=== PATIENT | male | born 1995 | race Caucasian/White ===

== ENCOUNTER 2016-10-11 16:39 | Day surgery (SDC) | payer OTHER ==
[2016-10-11 18:08] LABS: BILIRUBIN,URINE NEGATIVE (NEGATIVE)
[2016-10-11 18:10] LABS: UA CHARGE (STRIP ONLY) YES; UR CULTURE IF IND NOT INDICATED
[2016-10-11 18:16] LABS: BASOPHILS # (AUTO) 0.1 10^3/uL (0.0-0.1); BASOPHILS % (AUTO) 0.4 %; EOSINOPHILS % (AUTO) 0.1 %; HCT - HEMATOCRIT 45.5 % (42.0-52.0); HGB - HEMOGLOBIN 15.3 g/dL (14.0-18.0); LYMPHOCYTES # (AUTO) 1.5 10^3/uL (1.5-3.5); LYMPHOCYTES % (AUTO) 6.9 %; MEAN CORPUSCULAR HGB CONC 33.7 g/dL (32.0-36.0); MEAN CORPUSCULAR VOLUME 86.1 fL (80.0-94.0); MEAN PLATELET VOLUME 6.4 fL (7.4-11.4); MONOCYTES # (AUTO) 2.6 10^3/uL (0.0-1.0); NEUTROPHILS # (AUTO) 17.2 10^3/uL (1.5-6.6); NEUTROPHILS % (AUTO) 80.6 %; RED BLOOD COUNT 5.28 10^6/uL (4.70-6.10); RED CELL DISTRIBUTION WIDTH 12.9 % (12.0-15.0); UNCORRECTED WHITE BLOOD COUNT 21.3 x10^3/uL; WHITE BLOOD COUNT 21.3 x10^3/uL (4.8-10.8)
[2016-10-11] MEDS ORDERED: SODIUM CHLORIDE 0.9% 1,000 ML IV ONE (18:27)
[2016-10-11] MEDS ORDERED: PIPERACILLIN/TAZOBACTAM 3.375 GM in SODIUM CHLORIDE 0.9% MINIBAG 100 ML IV STA (18:27)
--- NOTE | 2016-10-11 18:29 | ED Physician Documentation ---
PD HPI ABD PAIN - Stated complaint Stated Complaint: AB PX - Chief complaint Chief Complaint: Abd Pain - History obtained from History obtained from: Patient, Family - History of Present Illness Timing - onset: Yesterday Timing - duration: Days (2) Timing - details: Gradual onset Pain level max: 8 Pain level now: 8 Quality: Aching, Pain Location: RLQ Radiation: Other (non-radiating) Improved by: Laying still Worsened by: Moving Associated symptoms: Nausea. No: Fever, Vomiting, Hematemesis, Diarrhea, Constipation, Melena, Hematochezia, Dysuria, Hematuria, Chest pain, Dizzy, Near syncope / syncope, Loss of appetite Similar symptoms before: Has not had sx before Recently seen: Not recently seen Review of Systems Ten Systems: 10 systems reviewed and negative Constitutional: denies: Chills Ears: denies: Ear pain Nose: denies: Rhinorrhea / runny nose, Congestion Cardiac: denies: Chest pain / pressure, Palpitations Respiratory: denies: Cough GI: denies: Vomiting, Diarrhea, Hematemesis, Bloody / black stool : denies: Dysuria Skin: denies: Rash Musculoskeletal: denies: Neck pain, Back pain Neurologic: denies: Focal weakness, Numbness, Headache PD PAST MEDICAL HISTORY - Past Medical History Past Medical History: Yes GI: GERD Psych: Depression, Anxiety - Past Surgical History Past Surgical History: Yes - Present Medications Home Medications: Ambulatory Orders Medication Instructions Recorded Confirmed Citalopram Hydrobromide [Celexa] 20 mg PO DAILY 10/11/16 10/11/16 Ranitidine HCl [Acid Insulation Applicator] 0 mg PO DAILY 10/11/16 10/11/16 - Allergies Allergies/Adverse Reactions: Allergies Allergy/AdvReac Type Severity Reaction Status Date / Time No Known Drug Allergies Allergy Verified 10/11/16 16:52 - Social History Does the pt smoke?: No Smoking Status: Never smoker PD ED PE NORMAL - Vitals Vital signs reviewed: Yes - General General: Alert and oriented X 3, No acute distress - HEENT HEENT: Moist mucous membranes - Neck Neck: Supple, no meningeal sign - Cardiac Cardiac: RRR - Respiratory Respiratory: No respiratory distress, Clear bilaterally - Abdomen Abdomen: Soft, Other (TTP RLQ, + rovsing, +obturator and psoas. +heel tap) - Back Back: No CVA TTP, No spinal TTP - Derm Derm: Warm and dry - Neuro Neuro: Alert and oriented X 3 - Psych Psych: Normal mood, Normal affect Results - Vitals Vitals: Vital Signs - 24 hr 10/11/16 10/11/16 10/11/16 16:51 18:34 20:34 Temperature 36.9 C 37.7 C H Heart Rate 103 H 95 Respiratory 18 16 Rate Blood Pressure 129/73 113/67 Blood Pressure [Right] O2 Saturation 97 100 99 10/11/16 10/11/16 10/11/16 20:40 20:45 20:50 Temperature Heart Rate Respiratory Rate Blood Pressure Blood Pressure [Right] O2 Saturation 98 100 100 10/11/16 10/11/16 10/11/16 20:56 21:00 21:05 Temperature 37.8 C H Heart Rate 80 Respiratory 21 Rate Blood Pressure Blood Pressure 116/55 L [Right] O2 Saturation 99 97 97 10/11/16 10/11/16 10/11/16 21:11 21:16 21:40 Temperature 37.0 C Heart Rate 95 80 79 Respiratory 19 18 19 Rate Blood Pressure Blood Pressure 111/61 114/64 120/65 [Right] O2 Saturation 97 96 98 Oxygen O2 Source Room air - Labs Labs: Laboratory Tests 10/11/16 10/11/16 10/11/16 17:55 18:09 18:09 WBC 21.3 H RBC 5.28 Hgb 15.3 Hct 45.5 MCV 86.1 MCH 29.0 MCHC 33.7 RDW 12.9 Plt Count 327 MPV 6.4 L Neut # 17.2 H Lymph # 1.5 [place] # 2.6 H Eos # 0.0 Baso # 0.1 Absolute Nucleated RBC 0.00 Nucleated RBCs 0.0 Manual Slide Review Indicated WBC Morphology NORMAL APPEARANCE Platelet Estimate NORMAL (130-450,000) Platelet Morphology NORMAL APPEARANCE RBC Morph Micro Appear NORMAL APPEARANCE Sodium 136 Potassium 4.1 Chloride 97 L Carbon Dioxide 30 Anion Gap 9.0 BUN 10 Creatinine 0.7 Estimated GFR (MDRD) 144 Glucose 102 H Calcium 9.7 Total Bilirubin 1.1 H AST 19 ALT 14 Alkaline Phosphatase 92 Total Protein 8.4 H Albumin 4.9 Globulin 3.5 Albumin/Globulin Ratio 1.4 Lipase 20 L Urine Color YELLOW Urine Clarity CLEAR Urine pH 7.0 Ur Specific [employer] 1.010 Urine Protein NEGATIVE Urine Glucose (UA) NEGATIVE Urine Ketones TRACE Urine Occult Blood TRACE-INTA Urine Nitrite NEGATIVE Urine Bilirubin NEGATIVE Urine Urobilinogen 0.2 (NORMAL) Ur Leukocyte Esterase NEGATIVE Ur Microscopic Review NOT INDICATED Urine Culture Comments NOT INDICATED PD MEDICAL DECISION MAKING - ED course Complexity details: reviewed results, re-evaluated patient, considered differential, d/w patient, d/w family, d/w professional services consultant ([id number] - Dr. Castañeda.) ED course: Patient is a 21-year-old male who presents to the emergency department with what appears clinically to be acute appendicitis. General surgery consult to has stopped this and will take to the operating room. Given IV antibiotics. This document was made in part using voice recognition software. While efforts are made to proofread this document, sound alike and grammatical errors may occur. Departure - Departure Disposition: ED [facility] Clinical Impression: Appendicitis Qualifiers: Appendicitis type: acute appendicitis Acute appendicitis type: with localized peritonitis Qualified Code(s): K35.3 - Acute appendicitis with localized peritonitis Condition: Stable Discharge Date/Time: 10/11/16 19:47
[2016-10-11 18:30] LABS: ALBUMIN/GLOBULIN RATIO 1.4 (1.0-2.2); BILIRUBIN,TOTAL 1.1 mg/dL (0.2-1.0); CALCIUM 9.7 mg/dL (8.5-10.3); CREATININE 0.7 mg/dL (0.6-1.2); POTASSIUM 4.1 mmol/L (3.5-5.0); TOTAL PROTEIN 8.4 g/dL (6.7-8.2)
[2016-10-11 19:43] LABS: PLATELET ESTIMATE, MANUAL NORMAL (130-450,000) (NORMAL); PLATELET MORPHOLOGY NORMAL APPEARANCE (NORMAL); WBC MORPHOLOGY (MULTIPLE) NORMAL APPEARANCE (NORMAL)
[2016-10-11] MEDS ORDERED: DEXAMETHASONE 4 MG/ML VIAL IVP ONE (20:00)
[2016-10-11] MEDS ORDERED: ONDANSETRON 4 MG/2 ML VIAL IVP ONE (20:00)
[2016-10-11] MEDS ORDERED: KETOROLAC 30 MG/ML VIAL IVP ONE (20:00)
[2016-10-11] MEDS ORDERED: fentaNYL 100 MCG/2 ML VIAL IVP ONE (20:00)
[2016-10-11] MEDS ORDERED: GLYCOPYRROLATE 1 MG/5 ML VIAL IVP ONE (20:00)
[2016-10-11] MEDS ORDERED: ACETAMINOPHEN 1,000 MG/100 ML VIAL IV ONE (20:00)
[2016-10-11] MEDS ORDERED: ROCURONIUM 50 MG/5 ML VIAL IVP ONE (20:00)
[2016-10-11] MEDS ORDERED: NEOSTIGMINE 1 MG/1 ML 10 ML MDV IVP ONE (20:00)
[2016-10-11] MEDS ORDERED: PROPOFOL 1000 MG/100 ML IV ONE (20:00)
[2016-10-11] MEDS ORDERED: SUCCINYLCHOLINE 200 MG/10 ML VIAL IVP ONE (20:00)
[2016-10-11] MEDS ORDERED: MIDAZOLAM 2 MG/2 ML VIAL IVP ONE (20:00)
[2016-10-11] MEDS ORDERED: LIDOCAINE-MPF 2% 5 ML VIAL IM ONE (20:00)
[2016-10-11] MEDS ORDERED: BUPIVACAINE 0.5% PF 30 ML VIAL SUBQ ONE (20:05)
[2016-10-11] MEDS: LACTATED RINGERS 1,000 ML IV ONE ×2 (20:05→20:39)
[2016-10-11] MEDS ORDERED: LACTATED RINGERS 1,000 ML IV ONE (20:05)
--- NOTE | 2016-10-11 21:02 | OPERATIVE REPORT ---
Operative Report - General Procedure Date: 10/11/16 (Procedure performed=laparoscopic appendectomy) Planned Procedure: Laparoscopic appendectomy, possible open appendectomy Pre-Op Diagnosis: Acute appendicitis Post Op Diagnosis: Acute non-perforated appendeicitis - Procedure Note Primary Surgeon: Solomon Castañeda Anesthesia Provider: Jose Shabazz Anesthesia Technique: General ET tube, Local (30 mL 1/2% marcaine) Estimated Blood Loss (in cc): 5 (Iaaqfz=2645 mL, U/O=200 mL) Complications: None. - Other Other Information/Narrative: OPERATIVE DESCRIPTION/REPORT: After verbal and written informed consent was obtained detailing the risks of infection, bleeding requiring transfusion with its risks, nerve injury, and , and after I met with the patient confirming the surgery and the site of the surgery, the patient was brought to the operative suite and placed supine on the operating table. Great care was taken to avoid pressure points to prevent pressure necrosis or nerve injury. Monitoring devices were applied along with TEDs and pneumatic compressive stockings (to prevent DVT). The patient received preoperative antibiotics for surgical prophylaxis. Jose Shabazz sedated and anethetized the patient for the entire procedure. The patient was prepped and draped in the usual sterile manner. With the patient draped my initials were clearly visible. A "time in" then confirmed that the paitient was identified with 3 identifiers (name, birthdate and medical record number), the history and physical was in the chart, the signed consent confirming the procedure was in the chart, the patient was in the correct position, the aforementioned prophylactic measures were in place or given, we had the correct personel and equipment to complete the procedure and that anesthesia, surgery and nursing were given an opportunuty to express any concerns. With the agreement of everyone in the room, we proceeded with the operation. A 2 cm umbilical midline incision was made. The fascia was then cleared of subcutaneous tissue using a tonsil clamp. A 2 cm incision was then made in the fascia gaining entry into the abdominal cavity without incident. A 12 mm blunt tipped balloon tipped Sharmaine port was placed into the abdomen and the balloon inflated to keep it in place. The pneumoperitoneum was then established using carbon dioxide insufflation to a steady state pressure of 12 mmHg. Two additional 5 mm ports were placed in the midline above and below the umbilicus. The patient was then rotated slightly to their left and slightly head down ( Trendelenberg). The appendix was clearly identified and noted to be thickened and clearly consistent with acute appendicitis. It was a simple matter to grasp the end of the appendix and lift it revealing the base of the appendix where it was draining into the cecum. The base of the appendix and mesentery were then stapled and transected using a laparoscopic vascular stapler. Visualization of the staple line revealed absolutely no bleeding or leak of bowel contents. The appendix was then place into an endopouch for the remainder of the case. The patient was then rotated to lie flat. The fascia and skin were then injected with the 30 cc of % marcaine for pain control. The insufflation was released and the ports removed. The fascial defect was then approximated using 0-Vicryl suture in a simple interrupted manner taking care to bury the knots. The skin incisions were approximated with 4-0 Monocryl in a subcuticular fashion. The surgical prep was removed, the skin was prepped with benzoin and steristrips were applied. A dressing was applied. At this point a time out was performed that confirmed that all the counts were correct, the procedure that was performed, the blood loss, the urine output, the IV fluids administered, and the patients condition. Having tolerated the procedure well, the patient was subsequently extubated and taken to recovery room in good and stable condition.
[2016-10-11] MEDS ORDERED: HYDROcod/ACET 5/325 Prepack 6 PO ONE (21:08)
[2016-10-11 21:41] VITALS: BP 120/65
[2016-10-11] MEDS ORDERED: HYDROcod/ACETAM 10 MG/325 MG TABLET ONE (21:41)
--- NOTE | 2016-10-12 07:15 | HISTORY & PHYSICAL EXAMINATION ---
DATE OF ADMISSION: 10/11/2016 I am called in consultation by Dr. Osmar Carcamo to evaluate this 21-year-old male for probable acut e appendicitis. HISTORY OF PRESENT ILLNESS: The patient had the abrupt onset of epigastric/umbilical pain yesterday t hat then localized to the right lower quadrant. It is accompanied by some nausea and some anorexia. T he patient came into the emergency department at [facility] "crabbed over." He has not had a previous history of this pain before. It is more painful with motion, it is less painful i f he holds still. ALLERGIES: NONE. MEDICATIONS: 1. Celexa 20 mg daily. 2. Ranitidine (do not know the dose) daily. PAST MEDICAL AND SURGICAL HISTORY: Significant for 1. Gastrointestinal reflux disease. 2. Depression. 3. Anxiety. 4. I believe he had some dental work done. FAMILY HISTORY: Noncontributory for this disease process. SOCIAL HISTORY: He does vape, but denies cigarette use. Alcohol: He denies alcohol use. He denies rec reational drug use including marijuana. REVIEW OF SYSTEMS: CONSTITUTIONAL: He denies fever or chills. HEENT: He denies difficulty speaking or swallowing. He denies any change in his vision or hearing. NECK: He denies difficulty breathing, speaking or swallowing. CARDIAC: He denies chest pain or pressure. RESPIRATORY: He denies cough or shortness of breath. GI: Please see above. : He denies dysuria. SKIN: He denies rash. MUSCULOSKELETAL: He denies any joint/bone/muscle pain. NEURO: He denies focal weakness, numbness, or headache. PHYSICAL EXAMINATION: GENERAL: This is a 21-year-old male who is evaluated in bed 10 at [facility]'s [facility] r[facility] department. He is alert and oriented to person, place, and time. His mood and affect are appro priate. He asks and answers questions well and easily. His mother is at the bedside. VITALS: Please refer to nurse's notes. HEENT: He is normocephalic, atraumatic. The sclerae are not injected, not icteric. His mucous membran es are pink and slightly dry. He is wearing corrective lenses. NECK: Supple without mass or bruit. HEART: Regular rate and rhythm without rub, murmur, or gallop. LUNGS: His lungs are clear to auscultation bilaterally. ABDOMEN: His abdomen is tender at McBurney's point, it is nondistended. He has decreased bowel sounds . BACK: Back was not evaluated. RECTAL: Not evaluated. EXTREMITIES: Show no clubbing, cyanosis, or edema. Gait was not evaluated. LABS: On his chemistry abnormalities include a chloride of 97, glucose 102, total bilirubin 1.1, tota l protein of 8.4 and a lipase of 20. Abnormalities on his hematology include a white blood cell count of 21.3 and 6.4 MPV. Urinalysis was entirely normal. Radiology was not used. ASSESSMENT: Acute appendicitis. PLAN: Laparoscopic appendectomy, possible open appendectomy. The indications of procedure, alternativ es and possible complications including but not limited to infection, bleeding with all of its risks including transfusion and were fully explained to the patient and all questions were answered. Verbal and written consent was obtained. The patient's mother was in the room when we obtained consen t. I explained if this is a nonruptured appendicitis he should be able to go home this evening. If it is ruptured he will likely need to be admitted for antibiotics and drainage. I have asked him to let us know if there was any way we could make his stay here at [facility] more comfo rtable. Additionally he is going to receive preoperative antibiotics for prophylaxis against surgical infection and he will have TEDS and placed for prophylaxis against deep venous thrombosis. JOB #: [id number] EXT JOB #:[id number]
== END 2016-10-11 19:04 | disposition home or self-care (01) ==
LOC: ED 16:39 → SDS 19:03
PROVIDERS: ATTEND Surgery
PROC: 0DTJ4ZZ Resection of Appendix, Percutaneous Endoscopic Approach (ICD-10-PCS; principal; 2016-10-11 19:30)
DX: K35.80 Unspecified acute appendicitis (principal); J45.909 Unspecified asthma, uncomplicated; K21.9 Gastro-esophageal reflux disease without esophagitis; F41.9 Anxiety disorder, unspecified; F32.9 Major depressive disorder, single episode, unspecified
CPT/HCPCS: 36415; 44970; 80053; 81003; 83690; 85025; 96365; 99283; 99284; A9270; J0131; J7120; 81001; 87086; 88304